=== PATIENT | male | born 1950 | race Caucasian/White ===

== ENCOUNTER → 2019-09-15 | Outpatient (CLI) | payer OTHER ==
[~2019-09-15] MED LIST: ASPIR 8181 MG PO; ASPIRIN325 PO; ATORVASTATIN CA40 MG PO; BYSTOLIC 5 MG5 MG PO; COZAAR 25 MG TA25 MG PO; CRESTOR10 MG PO; EFFIENT10 MG PO
== END ==
LOC: SJCVC 12:59
PROVIDERS: ATTEND Internal Medicine Cardiovascular Disease
DX: R00.1 Bradycardia, unspecified (principal); I25.10 Atherosclerotic heart disease of native coronary artery without angina pectoris; I10 Essential (primary) hypertension; E78.00 Pure hypercholesterolemia, unspecified; E78.5 Hyperlipidemia, unspecified; Z79.899 Other long term (current) drug therapy; Z79.82 Long term (current) use of aspirin; Z82.49 Family history of ischemic heart disease and other diseases of the circulatory system

== ENCOUNTER → 2019-11-15 | Outpatient (CLI) | payer OTHER | LOC: SJCVCIMAG 08:40 | PROVIDERS: ATTEND Internal Medicine Cardiovascular Disease | DX: I08.1 Rheumatic disorders of both mitral and tricuspid valves (principal); I49.3 Ventricular premature depolarization; I25.10 Atherosclerotic heart disease of native coronary artery without angina pectoris; E78.5 Hyperlipidemia, unspecified; I10 Essential (primary) hypertension; Z79.899 Other long term (current) drug therapy ==

== ENCOUNTER → 2020-08-20 | Outpatient (CLI) | payer OTHER | LOC: SJCVC 11:19 | PROVIDERS: ATTEND Internal Medicine Cardiovascular Disease | DX: R00.1 Bradycardia, unspecified (principal); I25.10 Atherosclerotic heart disease of native coronary artery without angina pectoris; I10 Essential (primary) hypertension; E78.00 Pure hypercholesterolemia, unspecified; I25.2 Old myocardial infarction; R53.83 Other fatigue; E78.5 Hyperlipidemia, unspecified; Z79.82 Long term (current) use of aspirin; Z79.899 Other long term (current) drug therapy; Z72.89 Other problems related to lifestyle ==

== ENCOUNTER 2021-05-18 20:04 | Emergency (ER) | payer OTHER ==
[~2021-05-18] VITALS: Ht 177.8 cm; Wt 79.4 kg
[2021-05-18] MEDS ORDERED: NORVASC5 MG PO (20:17)
[2021-05-18] MEDS ORDERED: ATORVASTATIN CA20 MG PO (20:17)
[2021-05-18 20:33] LABS: ABSOLUTE NEUTROPHILS 3.7 thou/uL (1.4-8.2); BASOPHILS 1.4 % (0.0-2.0); EOSINOPHILS 2.6 % (0.0-3.0); HEMATOCRIT 42.1 % (42.0-52.0); HEMOGLOBIN 13.9 gm/dL (14.0-18.0); LYMPHOCYTES 32.1 % (24.0-44.0); MCH 31.2 pg (26.0-34.0); MCV 94.6 fL (80.0-100.0); MONOCYTES 9.8 % (1.0-8.0); PLATELET COUNT 172 thou/uL (150-400); POLYS 54.1 % (36.0-66.0); RBC 4.45 mil/uL (4.50-6.00); RDW 15.2 % (10.5-14.5); WBC 6.8 thou/uL (4.0-11.0)
[2021-05-18 20:40] LABS: CALCIUM 8.9 mg/dL (8.5-10.1); CREATININE 0.9 mg/dL (0.7-1.3); POTASSIUM 3.5 mmol/L (3.5-5.1)
[2021-05-18] MEDS ORDERED: CLINDAMYCIN 300 MG PO (21:24)
[2021-05-18] MEDS ORDERED: PEPCID20 MG PO (23:33)
[2021-05-19 00:09] VITALS: BP 138/80
--- NOTE | 2021-05-19 11:15 | EKG ---
[facility] [place] [address] ELECTROCARDIOGRAM REPORT Name: SYDNI GARCIA Room #: [facility] SOLIS Lowery#: [id number] Admission: 05/18/21 Attend Phys: Discharge: 05/19/21 Date of : 48 Report #: [id number] [facility] ED Test Date: 2021-05-18 Test Time: 20:12:43 Pat Name: SYDNI GARCIA Department: Room: Gender: M [employer]: : 1950 Requested By: Geovany Velasquez Order Number: [id number] MD: Benson Jones Measurements Intervals [place] Rate: 59 P: 56 [place]: 183 QRS: -24 QRSD: 92 T: 10 QT: 413 QTc: 410 Interpretive Statements Sinus rhythm Multiform ventricular premature complexes Probable left atrial enlargement Borderline left axis deviation Baseline wander in lead(s) V4 Compared to ECG 05/19/2015 06:33:09 Ventricular premature complex(es) now present Sinus bradycardia no longer present Electronically Signed On 05-19-2021 11:15:39 STORE DIRECTOR by Benson Jones [email or web address] <ELECTRONICALLY SIGNED> By: Benson Jones MD 05/19/21 1115 11 11 Benson Jones MD /ROBERT
== END 2021-05-19 00:11 | disposition home or self-care (01) ==
LOC: ER 20:04
PROVIDERS: Student in an Organized Health Care Education/Training Program
DX: R07.89 Other chest pain (principal); Z88.0 Allergy status to penicillin; Z87.891 Personal history of nicotine dependence; Z79.899 Other long term (current) drug therapy

== ENCOUNTER → 2021-05-23 | Outpatient (CLI) | payer MEDICARE ==
[~2021-05-23] MED LIST changes: +ATORVASTATIN CA20 MG PO; +CLINDAMYCIN 300 MG PO; +NORVASC5 MG PO; +PEPCID20 MG PO
== END ==
LOC: SJCVC 11:15
PROVIDERS: ATTEND Internal Medicine Cardiovascular Disease
DX: I25.10 Atherosclerotic heart disease of native coronary artery without angina pectoris (principal); R07.9 Chest pain, unspecified; I10 Essential (primary) hypertension; E78.00 Pure hypercholesterolemia, unspecified; R00.1 Bradycardia, unspecified; R09.89 Other specified symptoms and signs involving the circulatory and respiratory systems; Z72.89 Other problems related to lifestyle; Z79.82 Long term (current) use of aspirin; Z79.899 Other long term (current) drug therapy; E78.5 Hyperlipidemia, unspecified; Z82.49 Family history of ischemic heart disease and other diseases of the circulatory system; Z95.818 Presence of other cardiac implants and grafts

== ENCOUNTER → 2021-05-30 | Outpatient (CLI) | payer MEDICARE | LOC: SJCVCIMAG 10:36 | PROVIDERS: ATTEND Internal Medicine Cardiovascular Disease | DX: I08.1 Rheumatic disorders of both mitral and tricuspid valves (principal); I10 Essential (primary) hypertension; E78.00 Pure hypercholesterolemia, unspecified; I25.10 Atherosclerotic heart disease of native coronary artery without angina pectoris; R07.9 Chest pain, unspecified ==